=== PATIENT | male | born 1950 | race Caucasian/White ===

== ENCOUNTER 2020-05-11 21:35 | Inpatient (IN) | payer MEDICARE, OTHER ==
[~2020-05-11] VITALS: Ht 188 cm; Wt 116.3 kg
[~2020-05-11 21:35] MED LIST: ASPI-630 PO; ATOR10TA PO; LEVE500T6 PO; LISI40TA6 PO; MELA3TAB4 PO; NIAC500T PO; PHEN100C PO
[2020-05-11] MEDS ORDERED: CONTRAST GIVEN. MC PRN (22:15)
[2020-05-11] MEDS ORDERED: IOHEXOL 350 MG/ML 100 ML VIAL. IV ONE (22:15)
--- NOTE | 2020-05-11 22:20 | PHYS DOC ---
Past History Past Medical History: CVA, Hypertension, Other Past Surgical History: No Surgical History, Other Alcohol Use: None Drug Use: None Adult General Chief Complaint Chief Complaint: ALTERED MENTAL STATUS HPI HPI Patient is a 70-year-old male with a endorsed past medical history between patient and patient's son of heart problems, heart failure, stroke, hypertension, COPD, current smoker who presents to the emergency department altered. Per son he was called at about 8:00 this evening from the [employer] after picking up his father at a gas station. Stated that his father was in his underwear at a gas station, out in the cold getting gas. Son states he does seem confused and not like himself. States he also appears to be having trouble breathing. States that he lives by himself and the last time he saw him was almost a week ago and he was at his baseline. Patient denies headache, changes in vision, chest pain, abdominal pain, nausea, vomiting, diarrhea. Denies any recent traumas or travel. Denies any numbness/weakness/tingling. Endorses shortness of breath and wheezing as well as weight gain over the last couple of weeks. Also endorses decreased urination. States he is taking all his medications as prescribed. Review of Systems Review of Systems Review of systems limited as patient is slightly confused and noted in HPI. Current Medications Current Medications Current Medications Medications (Trade) Dose Ordered Sig/Peggy Start Time Stop Time Status Last Admin Dose Admin Info (Do NOT chart on this entry -- for MONITORING) 1 each PRN DAILY PRN 05/11/20 22:15 05/13/20 22:14 Iohexol (Omnipaque 350 Mg/ml) 100 ml 1X ONCE 05/11/20 22:15 05/11/20 22:16 Allergies Allergies Allergies Coded Allergies Type Severity Reaction Last Updated Verified No Known Drug Allergies 04/04/14 No Physical Exam Physical Exam Constitutional: Well developed, well nourished, patient slightly confused, appears ill and having some difficulty breathing HENT: Normocephalic, atraumatic, dry, no oral exudates, nose normal. [] Eyes: PERRLA, EOMI, conjunctiva normal, no discharge. [] Neck: Normal range of motion, no tenderness, supple, no stridor. [] Cardiovascular: Tachycardia Lungs & Thorax: Bilateral rhonchi and wheezing with some accessory muscle use Abdomen: soft, appears distended, no tenderness, no masses, no pulsatile masses. [] Skin: Warm, dry, no erythema, no rash. [] Back: No tenderness, no CVA tenderness. [] Extremities: No tenderness, no cyanosis, no clubbing, ROM intact, bilateral pitting edema 2+ [] Neurologic: Patient alert and oriented to person and place but not to month, day or year. Cranial nerves intact. Gross motor intact. Gross sensation intact. Ysqugd-[id number] and efmh-[id number] intact. NIH of 1 for not knowing the correct month/year Psychologic: Affect normal, judgement normal, mood normal. [] Current Patient Data Vital Signs Vital Signs Date Time Temp Pulse Resp B/P (MAP) Pulse Ox O2 Delivery O2 Flow Rate FiO2 05/11/20 21:50 97.7 86 28 200/121 (147) 96 Room Air Lab Results Laboratory Tests Test 05/11/20 21:53 05/11/20 21:56 05/11/20 22:05 Urine Collection Type Unknown Urine Color Yellow Urine Clarity Clear Urine pH 5.5 Urine Specific [place] 1.025 Urine Protein >100 mg/dl (NEG-TRACE) Urine Glucose (UA) Neg mg/dL (NEG) Urine Ketones (Stick) Trace mg/dL (NEG) Urine Blood Large (NEG) Urine Nitrite Neg (NEG) Urine Bilirubin Neg (NEG) Urine Urobilinogen Dipstick 0.2 mg/dL (0.2 mg/dL) Urine Leukocyte Esterase Neg (NEG) Urine RBC 0 /HPF (0-2) Urine WBC 0 /HPF (0-4) Urine Squamous Epithelial Cells None /LPF Urine Bacteria 0 /HPF (0-FEW) Urine Opiates Screen Pos (NEG) Urine Methadone Screen Neg (NEG) Urine Barbiturates Neg (NEG) Urine Phencyclidine Screen Neg (NEG) Urine Amphetamine/Methamphetamine Neg (NEG) Urine Benzodiazepines Screen Neg (NEG) Urine Cocaine Screen Neg (NEG) Urine Cannabinoids Screen Neg (NEG) Urine Ethyl Alcohol Neg (NEG) Glucose (Fingerstick) 93 mg/dL (70-99) White Blood Count 7.9 x10^3/uL (4.0-11.0) Red Blood Count 3.89 x10^6/uL (4.30-5.70) Hemoglobin 10.9 g/dL (13.0-17.5) Hematocrit 34.3 % (39.0-53.0) Mean Corpuscular Volume 88 fL (79-100) Mean Corpuscular Hemoglobin 28 pg (25-35) Mean Corpuscular Hemoglobin Concent 32 g/dL (31-37) Red Cell Distribution Width 15.6 % (11.5-14.5) Platelet Count 175 x10^3/uL (140-400) Neutrophils (%) (Auto) 79 % (31-73) Lymphocytes (%) (Auto) 6 % (24-48) Monocytes (%) (Auto) 15 % (0-9) Eosinophils (%) (Auto) 0 % (0-3) Basophils (%) (Auto) 0 % (0-3) Neutrophils # (Auto) 6.2 x10^3uL (1.8-7.7) Lymphocytes # (Auto) 0.5 x10^3/uL (1.0-4.8) Monocytes # (Auto) 1.1 x10^3/uL (0.0-1.1) Eosinophils # (Auto) 0.0 x10^3/uL (0.0-0.7) Basophils # (Auto) 0.0 x10^3/uL (0.0-0.2) Prothrombin Time 10.9 SEC (9.4-11.4) Prothromb Time International Ratio 1.1 (0.9-1.1) Activated Partial Thromboplast Time 31 SEC (23-33) Sodium Level 141 mmol/L (136-145) Potassium Level 5.3 mmol/L (3.5-5.1) Chloride Level 104 mmol/L (98-107) Carbon Dioxide Level 25 mmol/L (21-32) Anion Gap 12 (6-14) Blood Urea Nitrogen 54 mg/dL (8-26) Creatinine 2.4 mg/dL (0.7-1.3) Estimated GFR (Cockcroft-Gault) 27.1 BUN/Creatinine Ratio 23 (6-20) Glucose Level 91 mg/dL (70-99) Lactic Acid Level 0.7 mmol/L (0.4-2.0) Calcium Level 8.5 mg/dL (8.5-10.1) Total Bilirubin 0.8 mg/dL (0.2-1.0) Aspartate Amino Transf (AST/SGOT) 67 U/L (15-37) Alanine Aminotransferase (ALT/SGPT) 24 U/L (16-63) Alkaline Phosphatase 84 U/L (46-116) Troponin I Quantitative < 0.017 ng/mL (0-0.055) JU-Jui-Q-Type Natriuretic Peptide 5000 pg/mL (0-124) Total Protein 7.5 g/dL (6.4-8.2) Albumin 3.5 g/dL (3.4-5.0) Albumin/Globulin Ratio 0.9 (1.0-1.7) Salicylates Level < 2.8 mg/dL (2.8-20.0) Salicylate Last Dose Date 05/11/20 Salicylate Last Dose Time 2300 Acetaminophen Level < 2.0 mcg/mL (10-30) Acetaminophen Last Dose Date 05/11/20 Acetaminophen Last Dose Time 2300 Laboratory Tests Test 05/11/20 21:56 Glucose (Fingerstick) 93 mg/dL (70-99) EKG EKG [] Radiology/Procedures Radiology/Procedures []CT chest abdomen and pelvis without contrast: History: Pain status post fall Axial helical images of the chest, abdomen and pelvis were obtained without IV contrast. Comparison: none Findings: The root of the abdominal aorta has normal caliber. The ascending aorta is mildly dilated to 3.5 centers in diameter. There is respiratory motion. There is a saccular aneurysm arising laterally from the aortic arch on the left that measures 4.0 cm in diameter. The descending thoracic aorta is tortuous and aneurysmal measuring as great as 5.7 cm in diameter. There is some contrast from previous CT and there is crescentic thrombus seen within the thoracic aorta with soft plaque. There are 2 smaller saccular aneurysms arising from the descending thoracic aorta. Impression: Tortuous atherosclerotic aorta with aneurysmal change of the thoracic aorta especially the descending aorta and with multiple saccular aneurysms the largest is arising from the aortic arch. End Impression CT SCAN OF THE ABDOMEN without IV CONTRAST. Findings: The aorta is aneurysmal and measures 5.5 cm in AP dimension by 5.0 cm in width at the level the diaphragm. The aorta measures 4.4 centers in AP dimension by 4.1 cm in width at the level the renal arteries. The infrarenal abdominal aorta is only mildly aneurysmal measuring 3.1 centers in AP dimension. There is sigmoid diverticulosis. The appendix is normal. There is a fat-containing inguinal canal hernia on the left. Liver: Unremarkable Spleen: Unremarkable Pancreas: Unremarkable Adrenal Glands: Unremarkable Kidneys: Unremarkable Evaluation of stomach and bowel is limited without oral contrast. Evaluation of solid organs is limited without IV contrast. There is no mass or lymphadenopathy. There is no free air. There is no free fluid. The bladder appears normal. There is no pericolonic inflammation. Impression: Abdominal aortic aneurysm described above. See CT chest without contrast. End Impression PQRS Compliance Statement: CTA HEAD: Intracranial segments of the right internal carotid artery are patent without evidence of stenosis, occlusion or aneurysm. Right MCA is patent. Right SADIQ is patent. Cranial segments of the left internal carotid artery are patent without evidence of stenosis, occlusion or aneurysm. Left MCA is patent. Left SADIQ is patent. Basilar artery is patent without evidence of stenosis, occlusion or aneurysm. manager traffic are patent proximally. Evaluation for acute infarct or hemorrhage is markedly limited secondary to postcontrast iterative of exam without large abnormality identified. IMPRESSION: 1. Mild plaque at the origin of the internal carotid arteries bilaterally without significant stenosis. 2. Patent intracranial arterial vasculature without evidence of stenosis, occlusion or aneurysm. 3. Adenopathy at the AP window. Dedicated evaluation of the chest is recomm ended in the nonemergent/outpatient setting. Heart Score Risk Factors: Risk Factors: DM, Current or recent (<one month) smoker, HTN, HLP, family history of CAD, obesity. Risk Scores: Risk Factors: DM, Current or recent (<one month) smoker, HTN, HLP, family history of CAD, obesity. Course & Med Decision Making Course & Med Decision Making Patient is a 70-year-old male who presents to the emergency department confused with labored breathing and wheezing and bilateral lower extremity edema Vital signs notable for tachycardia, tachypnea and hypertension. Patient placed on the monitor with IV access established. 2 IVs placed. Patient placed on CPAP. EKG with no STEMI but definitely abnormal with right bundle branch block. Troponin normal. Patient with ELEANOR and elevated BNP to 5000 on laboratory analysis. CTA of the head chest, abdomen and pelvis notable for multiple aortic aneurysms the biggest being 5.7 cm with no dissection. A small crescentic thrombus shown in the aorta. Patient started on nicardipine for blood pressure and given dose of Lasix. Discussed findings with patient and family and recommended admission to the hospital for continued evaluation and treatment of probable hypertensive encephalopathy, hypertensive emergency, ELEANOR and further evaluation of his aortic aneurysms. [] Dragon Disclaimer Dragon Disclaimer This electronic medical record was generated, in whole or in part, using a voice recognition dictation system. Departure Departure: Impression: Primary Impression: Hypertensive emergency Additional Impressions: Hypertensive encephalopathy ELEANOR (acute kidney injury) Elevated brain natriuretic peptide (BNP) level Aortic aneurysm Disposition: ADMITTED INPT THIS HOSP Admitting Physician: Norma Garcias Condition: IMPROVED Referrals: PCP,UNKNOWN (PCP) Problem Qualifiers MARLENA GUZMÁN MD May 11, 2020 22:20
[2020-05-11 22:27] LABS: BASO % 0 % (0-3); EOS % 0 % (0-3); HEMATOCRIT 34.3 % (39.0-53.0); HEMOGLOBIN 10.9 g/dL (13.0-17.5); LYMPH # 0.5 x10^3/uL (1.0-4.8); LYMPH % 6 % (24-48); MEAN CORPUSCULAR HEMOGLOBIN 28 pg (25-35); MEAN CORPUSCULAR HGB CONC 32 g/dL (31-37); MEAN CORPUSCULAR VOLUME 88 fL (79-100); MONO # 1.1 x10^3/uL (0.0-1.1); MONO % 15 % (0-9); NEUT # 6.2 x10^3uL (1.8-7.7); NEUT % 79 % (31-73); PLATELET COUNT 175 x10^3/uL (140-400); RED BLOOD COUNT 3.89 x10^6/uL (4.30-5.70); RED CELL DISTRIBUTION WIDTH 15.6 % (11.5-14.5); WHITE BLOOD COUNT 7.9 x10^3/uL (4.0-11.0)
[2020-05-11 22:34] LABS: CALCIUM 8.5 mg/dL (8.5-10.1); CREATININE 2.4 mg/dL (0.7-1.3); GFR 27.1
[2020-05-11 22:41] LABS: ACETAMIN < 2.0 mcg/mL (10-30); SALIC < 2.8 mg/dL (2.8-20.0)
[2020-05-11 22:49] LABS: ALBUMIN 3.5 g/dL (3.4-5.0); ALBUMIN/GLOBULIN RATIO 0.9 (1.0-1.7); TOTAL BILIRUBIN 0.8 mg/dL (0.2-1.0)
--- NOTE | 2020-05-11 22:59 | RAD ---
Exam: CTA head and neck INDICATION: Altered mental status TECHNIQUE: Sequential axial images through the head and neck obtained following the administration of 75 mL of Omni 350 IV contrast. Sagittal and coronal reformatted images were reconstructed from the a xial data and reviewed. Comparisons: None FINDINGS: CTA neck: Evaluation of the tibial vasculature limited secondary to contrast bolus timing. Thoracic aorta has a normal course and caliber. There is a masslike area at the AP window, may relate to adenopathy. Right common carotid artery is patent without evidence of stenosis, occlusion or aneurysm. Mild plaqu e at the origin of the right internal carotid artery without significant stenosis. Left common carotid artery is patent without evidence of stenosis, occlusion or aneurysm. Mild plaque at the origin of the left internal carotid artery without significant stenosis. Right vertebral artery is patent to the basilar confluence without evidence of stenosis, occlusion or aneurysm. Left vertebral artery is patent to the basilar confluence without evidence of stenosis, occlusion or aneurysm. Visualized paraspinal soft tissues are unremarkable. CTA HEAD: Intracranial segments of the right internal carotid artery are patent without evidence of stenosis, o cclusion or aneurysm. Right MCA is patent. Right SADIQ is patent. Cranial segments of the left internal carotid artery are patent without evidence of stenosis, occlusi on or aneurysm. Left MCA is patent. Left SADIQ is patent. Basilar artery is patent without evidence of stenosis, occlusion or aneurysm. assembler golf wood head are patent proxima lly. Evaluation for acute infarct or hemorrhage is markedly limited secondary to postcontrast iterative of exam without large abnormality identified. IMPRESSION: 1. Mild plaque at the origin of the internal carotid arteries bilaterally without significant stenos is. 2. Patent intracranial arterial vasculature without evidence of stenosis, occlusion or aneurysm. 3. Adenopathy at the AP window. Dedicated evaluation of the chest is recommended in the nonemergent/ outpatient setting. Exposure: One or more of the following in the visualized dose reduction techniques were utilized for this examination: 1. Automated exposure control 2. Adjustment of the MA and/or KV according to patient size 3. Use of iterative of reconstructive technique Electronically signed by: Guevara Olvera MD (05/11/2020 10:57 PM) [facility]
--- NOTE | 2020-05-11 23:15 | RAD ---
CT chest abdomen and pelvis without contrast: History: Pain status post fall Axial helical images of the chest, abdomen and pelvis were obtained without IV contrast. Comparison: none Findings: The root of the abdominal aorta has normal caliber. The ascending aorta is mildly dilated to 3.5 cent ers in diameter. There is respiratory motion. There is a saccular aneurysm arising laterally from the aortic arch on the left that measures 4.0 cm in diameter. The descending thoracic aorta is tortuous and aneurysmal measuring as great as 5.7 cm in diameter. There is some contrast from previous CT and there is crescentic thrombus seen within the thoracic aorta with soft plaque. There are 2 smaller sac cular aneurysms arising from the descending thoracic aorta. Impression: Tortuous atherosclerotic aorta with aneurysmal change of the thoracic aorta especially the descending aorta and with multiple saccular aneurysms the largest is arising from the aortic arch. End Impression CT SCAN OF THE ABDOMEN without IV CONTRAST. Findings: The aorta is aneurysmal and measures 5.5 cm in AP dimension by 5.0 cm in width at the level the diaph ragm. The aorta measures 4.4 centers in AP dimension by 4.1 cm in width at the level the renal arteri es. The infrarenal abdominal aorta is only mildly aneurysmal measuring 3.1 centers in AP dimension. There is sigmoid diverticulosis. The appendix is normal. There is a fat-containing inguinal canal hernia on the left. Liver: Unremarkable Spleen: Unremarkable Pancreas: Unremarkable Adrenal Glands: Unremarkable Kidneys: Unremarkable Evaluation of stomach and bowel is limited without oral contrast. Evaluation of solid organs is limit ed without IV contrast. There is no mass or lymphadenopathy. There is no free air. There is no free fluid. The bladder appears normal. There is no pericolonic inflammation. Impression: Abdominal aortic aneurysm described above. See CT chest without contrast. End Impression PQRS Compliance Statement: One or more of the following individualized dose reduction techniques were utilized for this examinat ion: 1. Automated exposure control 2. Adjustment of the mA and/or kV according to patient size 3. Use of iterative reconstruction technique Electronically signed by: Domingo Weaver III, MD (05/11/2020 11:12 PM) [facility]
--- NOTE | 2020-05-12 00:01 | EKG ---
[address] [address] Test Date: 2020-05-11 Test Time: 22:55:27 Pat Name: DIMAS JOHNSTON Department: Room: Gender: M Floor Framer: CONNIE : [id number] Requested By: MARLENA GUZMÁN Order Number: [id number] Reading MD: Darell James MD Measurements Intervals Mackey Rate: 95 P: -90 DE: 168 QRS: 5 QRSD: 140 T: 23 QT: 388 QTc: 491 Interpretive Statements SINUS RHYTHM RIGHT BUNDLE BRANCH BLOCK ABNORMAL ECG Electronically Signed On 05-13-2020 12:41:54 GARMENT SEWER HAND by Darell James MD
[2020-05-12 00:08] LABS: POTASSIUM 5.3 mmol/L (3.5-5.1)
[2020-05-12 00:09] LABS: TOTAL PROTEIN 7.5 g/dL (6.4-8.2)
--- NOTE | 2020-05-12 00:12 | RAD ---
XR FOOT_RIGHT 3 VIEWS, XR EXAM OF ANKLE_RIGHT 3VIEWS 05/11/2020 11:52 PM INDICATION: Right foot and ankle swelling, bruising COMPARISON: None available. TECHNIQUE: 3 views of the right foot and 3 views of the right ankle are provided. FINDINGS/ IMPRESSION: There is diffuse soft tissue swelling predominantly along the medial aspect of the ankle. Tibial plaf ond and talar dome are intact. Ankle mortise is congruent. There is no acute fracture or dislocation. There is a remote healed fracture deformity involving the neck of the fifth metatarsal. Mild joint s pace narrowing involving the first interphalangeal joint and first metatarsophalangeal joint compatib le with mild osteoarthrosis. Tiny plantar calcaneal enthesophyte. Electronically signed by: Kath Garcia MD (05/12/2020 12:09 AM) [facility]
[2020-05-12] MEDS ORDERED: IV NORMAL SALINE 250ML 250 ML ONE (00:19)
[2020-05-12 00:22] LABS: BARBITURATES NEG (NEG); BENZODIAZEPINES NEG (NEG); CANNABINOIDS NEG (NEG); COCAINE NEG (NEG); METHADONE NEG (NEG); OPIATES POS (NEG); PHENCYCLIDINE NEG (NEG)
[2020-05-12 00:23] LABS: BACTERIA,URINE 0 /HPF (0-FEW); BILIRUBIN,URINE NEG (NEG); CLARITY,URINE CLEAR; COLOR,URINE YELLOW; GLUCOSE,URINE NEG (NEG); NITRITE,URINE NEG (NEG); RBC,URINE 0 /HPF (0-2); UROBILINOGEN,URINE 0.2 mg/dL (0.2 mg/dL); WBC,URINE 0 /HPF (0-4)
[2020-05-12 00:25] LABS: AMPHETAMINE/METHAMPHETAMINE NEG (NEG)
[2020-05-12] MEDS ORDERED: FUROSEMIDE 40 MG/4 ML VIAL IVP ONE (00:30)
[2020-05-12] MEDS ORDERED: NITROGLYCERIN SUBLINGUAL 0.4 MG BOTTLE OF 25. SL PRN (00:30)
--- NOTE | 2020-05-12 08:15 | NUR ---
Patient arrived to the unit via EMS. Patient is confused, disoriented, having hallucinations and delusions. Patient is having impulsive, aggressive and erratic behaviors. Patient is having labored breathing and placed on 2L NC with a SPO2 sat of 94, patient is on Cardene gtt, admitting blood pressure is 165/98, HR 96, RR 22. Patient was placed in the bed with side rails up X 2 WCTM closely.
[2020-05-12] MEDS ORDERED: OLANZapine IM 10 MG VIAL. IM ONE (09:45)
[2020-05-12 10:09] LABS: BGAS PH 7.32 (7.35-7.46)
[2020-05-12 10:10] LABS: FECAL OB PT POSITIVE (NEG)
[2020-05-12 11:00] VITALS: BP 139/96
[2020-05-12] MEDS: DEXMEDETOMIDINE 200 MCG in IV NORMAL SALINE 50ML 48 ML IV PRN ×2 (11:01→13:54)
[2020-05-12] MEDS ORDERED: methylPREDNISolone SOD SUCC PF 125 MG/2 ML VIAL. IV SCH (12:00)
[2020-05-12] MEDS ORDERED: FAMOTIDINE 20 MG/2 ML VIAL IVP ONE (12:00)
[2020-05-12] MEDS ORDERED: diphenhydrAMINE 50 MG/ML VIAL IVP ONE (12:00)
[2020-05-12] MEDS ORDERED: FAMOTIDINE 20 MG/2 ML VIAL IVP SCH (12:00)
[2020-05-12] MEDS ORDERED: methylPREDNISolone SOD SUCC PF 125 MG/2 ML VIAL. IV ONE (12:15)
[2020-05-12] MEDS ORDERED: diphenhydrAMINE 50 MG/ML VIAL IVP PRN (12:15)
--- NOTE | 2020-05-12 13:26 | SSS ---
ADMIT DATE: 05/12/2020 HISTORY OF PRESENT ILLNESS: The patient is a 70-year-old male patient who was brought to the Emergency Department with altered mental status. Per son, he was called at about 8:00 this evening from the police department after picking up his father at a gas station stated that his father was in his underwear at the gas station out in the cold getting gas and the son stated that he does seem confused and not like himself. He stated that he appears to be having trouble breathing. He stated he lives by himself and the last time he saw him was almost a week ago and was at his baseline. The patient himself denied any headache, change in vision, chest pain, abdominal pain, nausea, vomiting, diarrhea. Denied any recent trauma or travel. Denied any numbness, weakness, tingling. Endorses shortness of breath and wheezing as well as weight gain over the last couple of weeks, also endorses decreased urination, stated that he is taking all his medications as prescribed. He was extensively investigated in the Emergency Room including lab work and imaging studies. His imaging studies, in particular, showed that CT angio of the neck and head were negative and his CT scan of the chest, abdomen and pelvis without contrast did show the root of the abdominal aorta has normal caliber. The ascending aorta is mildly dilated 3.5 cm in diameter. There is respiratory motion. 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 The descending thoracic aorta is tortuous and aneurysmal measuring up to 5.7 cm in diameter. 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 His right foot showed diffuse soft tissue swelling predominantly along the medial aspect of the ankle. Tibial and talar dome are intact. Ankle mortise is congruent. There is no acute fracture or dislocation. There is a remote healed fracture deformity involving the neck and the fifth metatarsal, mild joint space narrowing involving the first interphalangeal joint and first metatarsophalangeal joints compatible with mild osteoarthrosis. PAST MEDICAL HISTORY: Gleaned from previous admission showed that he is known to have hypertension, hyperlipidemia, TIA x 3, grand mal seizures, recurrent episode of dizziness and blurring of vision in his left eye. PAST SURGICAL HISTORY: Significant for right carotid endarterectomy. These are all information I gleaned from his admission to [facility] in 2015. ALLERGIES: He has no known drug allergies. At that time as the patient does not his son does not know. MEDICATIONS: He was on aspirin 81 mg once a day, Lipitor 40 mg at bedtime, Keppra 500 mg twice a day, lisinopril 40 mg once a day, melatonin 3 mg at bedtime and he was on niacin extended release 500 mg once a day. FAMILY HISTORY: He has one sister who is younger and healthy. His father at the age of 52 secondary to throat cancer. His mother, at least when we saw him, at that time in 2014, his mother was still alive at the age of 81. SOCIAL HISTORY: , he has 1 son. He smokes half a pack a day. He does not drink alcohol. He used marijuana before. He is currently retired. REVIEW OF SYSTEMS: The patient is extremely confused and does not really give any information. He is hallucinating. PHYSICAL EXAMINATION: GENERAL: On examining him, the patient was clearly tachypneic, but there was no pallor, jaundice or cyanosis. No lymphadenopathy, no thyromegaly. No jugular venous distension. Mild bilateral lower limb edema. VITAL SIGNS: His heart rate on admission was 92, blood pressure was 165. On admission, his blood pressure was 200/121, respiratory rate 28, temperature was 97.7, oxygen saturation was 96% on room air. HEAD, EYES, EARS, NOSE AND THROAT: Showed normocephalic, atraumatic. NECK: Supple. HEART: Showed normal first and second heart sounds. No gallop, rub or murmur. CHEST: Shows central trachea, equally reduced expansion, reduced air entry, vesicular sounds with diffuse bilateral rhonchi. I could not appreciate any crepitation. ABDOMEN: Distended, soft, nontender. NEUROLOGIC: The patient is definitely extremely confused, hallucinating; however, all his cranial nerves are intact. EXTREMITIES: He moves extremities without difficulty. He apparently was recently at [facility] according to him. He has also markedly swollen right foot with bruises. LABORATORY DATA: His lab work on admission showed a white cell count 7900, hemoglobin 11, hematocrit 34, MCV 88 and platelet count of 175,000. His serum sodium was 141, potassium 5.3, chloride 104, bicarbonate 25, anion gap of 12, BUN 54, creatinine 2.4, estimated GFR was 27 mL per minute. His glucose was 91, calcium was 8.5. Total bilirubin, AST, ALT, alkaline phosphatase were normal. His first troponin was less than 0.017. The beta natriuretic peptide was 5000. Total protein 7.5, albumin was 3.5. His prothrombin time, INR and aPTT are normal. His urinalysis showed the urine was yellow, clear with a pH of 5.5, specific gravity of 1.025. There is more than 100 mg/dL large amount of blood. The urine was negative for glucose with trace of ketones, negative for nitrite, negative for leukocyte esterase. There are no rbc's, no wbc's, and no bacteria. His urine toxic screen was positive for opiates, but negative for barbiturates, phencyclidine, amphetamine, methamphetamine, benzodiazepine, cocaine, cannabinoids and alcohol. His stool for occult blood was positive. We did blood gases after he arrived to the ICU and it showed a pH of 7.32, pCO2 of 49, pO2 of 79, bicarbonate 25, ____ on FiO2 of 28%. ASSESSMENT AND PLAN: In summary, this is a 70-year-old male patient who normally lives at home on his own and take care of himself who has multiple medical problems including hypertension, hyperlipidemia, transient ischemic attack x 3, grand mal seizure, recurrent episode of dizziness and blurring of vision in his left eye. He was apparently found in his underwear on a gas station. The police department called and stated that his father was in his underwear at a gas station, out in the cold getting gas. Son states he does seem confused and not like himself. His blood pressure was extremely high, 200/120. His tongue was extremely large and my differential diagnosis is either hypertensive encephalopathy, postictal state or angioneurotic edema. We did start him on Cardene drip to control his blood pressure, maintaining at least systolic pressure around 160-170 mmHg. We will treat him with a loading dose of Keppra 1000 mg and then we will switch him back to 500 mg twice a day. Give him Solu-Medrol 125 mg once and then 40 mg every 8 hours, Benadryl as well as Pepcid. We will transfer him to [facility]. We made attempts to transfer him to [facility] without success. VERNA VELAZCO MD DR: ANNE MARIE/odell JOB#: [id number] / [id number]
[2020-05-12] MEDS ORDERED: methylPREDNISolone SOD SUCC PF 40 MG/ML VIAL. IV SCH (14:00)
--- NOTE | 2020-05-12 15:30 | NUR ---
After his assessment Dr Garcias determined that the patient needed a higher level of care with specialty consultations therefore patient was transferred to [facility] ICU bed 108. Report was called to Logan AMBROSE at [facility]. Patient left the unit via EMS with all of his personal belongings which included 2 cell phones, a wallet and eyeglasses.
== END 2020-05-12 15:15 | disposition short-term general hospital (02) | DRG 682 ==
LOC: ER 21:35 → ICU 05-12 01:24
PROVIDERS: ADMIT Internal Medicine; ATTEND Internal Medicine
DX: N17.9 Acute kidney failure, unspecified (principal); I50.33 Acute on chronic diastolic (congestive) heart failure; I16.1 Hypertensive emergency; I67.4 Hypertensive encephalopathy; I11.0 Hypertensive heart disease with heart failure; T78.3XXA Angioneurotic edema, initial encounter; E11.9 Type 2 diabetes mellitus without complications; E78.5 Hyperlipidemia, unspecified; F17.210 Nicotine dependence, cigarettes, uncomplicated; G40.409 Other generalized epilepsy and epileptic syndromes, not intractable, without status epilepticus; I45.10 Unspecified right bundle-branch block; I70.0 Atherosclerosis of aorta; I71.4 Abdominal aortic aneurysm, without rupture; Z80.8 Family history of malignant neoplasm of other organs or systems; Z82.49 Family history of ischemic heart disease and other diseases of the circulatory system; Z86.73 Personal history of transient ischemic attack (TIA), and cerebral infarction without residual deficits; M19.90 Unspecified osteoarthritis, unspecified site; Z20.822 Contact with and (suspected) exposure to COVID-19
CPT/HCPCS: 36415; 36600; 70496; 70498; 71250; 73610; 73630; 74176; 80053; 80307; 80329; 81001; 82274; 82803; 82947; 83605; 83880; 84443; 84484; 85025; 85610; 85730; 87040; 87493; 93005; 94660; 96365; 96366; 96375; 99285; J1200; J1940; J1953; J2920; J2930; J3490; J7050; Q9967; U0003; G0480